=== PATIENT | male | born 1975 | race Caucasian/White ===

== ENCOUNTER 2022-12-06 16:04 | Emergency (ER) | payer OTHER, SELFPAY ==
[2022-12-06 16:05] VITALS: BP 139/85; PULSE 87; RESP 16; TEMP 36.8; O2SAT 97; BMI 34.9
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
[2022-12-06 16:30] VITALS: RESP 16
[2022-12-06] MEDS: Cephalexin 250 MG Capsule 500 MG PO (16:33)
== END 2022-12-06 16:37 | disposition home or self-care (01) ==
LOC: ED 16:33
PROVIDERS: Emergency Provider Emergency Medicine; Referring Provider Emergency Medicine; Visit Provider Emergency Medicine
DX: L03.811 Cellulitis of head [any part, except face] (principal)
CPT/HCPCS: 99283